=== PATIENT | female | born 1990 | race Caucasian/White ===

== ENCOUNTER 2018-10-03 20:06 | Emergency (ER) | payer OTHER ==
[~2018-10-03] VITALS: Ht 170.2 cm; Wt 88.0 kg
[~2018-10-03 20:06] MED LIST: FERR240T9 PO; PRENAT PO
[2018-10-03 20:15] VITALS: BP 132/60; PULSE 67; RESP 16; Ht 170.2 cm; Wt 88.0 kg
--- NOTE | 2018-10-03 23:59 | ERD ---
ER Documentation Chief Complaint Chief Complaint VB since this morning, pt passed a clot HPI 28-year-old female presenting with vaginal bleeding since this morning. She has a Nexplanon she is had it for the last 4 months however she developed bleeding this morning and passed a large clot. She was concerned because she has not experienced it. Over the last 4 months. Denies any back pain. Denies any dysuria. Denies any chest pain or shortness of breath. G3, . Denies medical problems. NKDA. Surgical history denies. Social history denies ROS All systems reviewed and are negative except as per history of present illness. Medications Home Meds Reported Medications Ferrous Gluconate (Iron) 1 Tab Tablet, 1 TAB PO, #1 11/05/14 Multivit/Min/Fol Ac/Iron/Pren* ( S*) 1 Tab Tab, 1 TAB PO DAILY, #1 TAB 11/05/14 Allergies Allergies: Coded Allergies: No Known Allergy (Unverified , 11/05/14) PMhx/Soc Medical and Surgical Hx: pt denies Surgical Hx History of Surgery: No Anesthesia Reaction: No Hx Neurological Disorder: No Hx Respiratory Disorders: No Hx Cardiac Disorders: No Hx Psychiatric Problems: No Hx Miscellaneous Medical Probl: Yes (Miscarriages) Hx Alcohol Use: No Hx Substance Use: No Hx Tobacco Use: No Smoking Status: Never smoker FmHx Family History: No diabetes, No coronary disease, No other Physical Exam Vitals Vital Signs Date Temp Pulse Resp B/P (MAP) Pulse Ox O2 O2 Flow FiO2 Time Delivery Rate 10/03/18 98.9 67 16 132/60 100 20:15 (84) Physical Exam GENERAL: The patient is well-appearing, well-nourished, in no acute distress CHEST: Clear to auscultation bilaterally. There are no rales, wheezes or rhonchi. HEART: Regular rate and rhythm. No murmurs, clicks, rubs or gallops. No S3 or S4. ABDOMEN:Soft, nontender and nondistended. Good bowel sounds. No rebound or guarding. No gross peritonitis. No gross organomegaly or masses. BACK: No midline or flank tenderness. Results 24 hrs Laboratory Tests Test 10/03/18 20:35 10/03/18 20:39 Urine Color YELLOW Urine Clarity SLIGHTLY CLOUDY Urine pH 7.0 Urine Specific Bl[place] 1.024 Urine Ketones NEGATIVE mg/dL Urine Nitrite NEGATIVE mg/dL Urine Bilirubin NEGATIVE mg/dL Urine Urobilinogen NEGATIVE mg/dL Urine Leukocyte Esterase NEGATIVE Julio/ul Urine Microscopic RBC 2 /HPF Urine Microscopic WBC 1 /HPF Urine Squamous Epithelial Cells FEW /HPF Urine Hemoglobin NEGATIVE mg/dL Urine Glucose NEGATIVE mg/dL Urine Total Protein NEGATIVE mg/dl POC Beta HCG, Qualitative NEGATIVE Procedures/MDM DIAGNOSTIC IMAGING REPORT Patient: YARI JI : 1990 Age: 28 Sex: F MR #: [id number] DOS: 10/03/182026 Ordering MD: ANURADHA STORM PA-C Location: [facility] Room/Bed: PROCEDURE: ULTRASOUND EVALUATION OF THE FEMALE PELVIS CLINICAL INDICATION: 28 years of age, female. Low back pain and mild vaginal bleeding. TECHNIQUE: Real-time sonographic images of the pelvis were obtained transabdominally utilizing renner scale, color, and Doppler imaging. The patient declined transvaginal scanning. COMPARISON: None available. FINDINGS: LMP: Nexplanon implant for control since May 2018. Transabdominal ultrasound of the pelvis is limited due to a contracted urinary bladder. The patient declined transvaginal scanning. Uterus: Appearance: Normal. Position: Anteverted. Size: 6.4 x 3.4 x 5.4 cm. (Volume 62 mL) Endometrial stripe: 0.5 cm Right ovary and adnexa: Size: 2.8 x 2.7 x 2 cm. (Volume 7.6 mL) Appearance: Normal morphology. No masses. Arterial flow is present. Left ovary and adnexa: Size: 3.1 x 3.4 x 2.7 cm. (Volume 10.7 mL) Appearance: Normal morphology. No masses. Arterial flow is present. Free fluid: None. IMPRESSION: 1. Normal transabdominal ultrasound evaluation of the female pelvis. Transvaginal scanning was not performed. 2. Transabdominal ultrasound is somewhat limited due to an under distended bladder. If symptoms persist, consider repeat transabdominal ultrasound through a full bladder or transvaginal ultrasound. Recommend correlation with serum beta HCG to rule out . MDM: 28-year-old female presenting after she passed a clot. She is ultrasound is within normal limits and urine is negative. Urinalysis negative. Patient likely had a mild hormonal imbalance which caused her to have some slight vaginal bleeding however there is no indication that there is further complications at this time. I do not feel further blood work or imaging is jolly cated. She is discharged with strict ER precautions and supportive medications. Patient is told if symptoms change or worsen to return immediately to the ER. All questions answered at discharge. Patient recommended to follow-up [facility] Departure Diagnosis: Primary Impression: Vaginal bleeding Condition: Stable Patient Instructions: Menorrhagia Referrals: [facility] [place] [address] [facility] [address] [place] [address] OFFICE FAX [facility] [address] [place] [address] [address] [place] [place] [address] [place] [address] [address] PEDRO[place], [facility] [address] [facility] [address] [facility] [address] [address] [facility] [facility] [address] [place] [address] [facility] [address] [place] [address] [facility] [id number] - [address] [facility] [address] [address], [facility] [address] [facility]. [address], [facility] [address] [address] [address] [place], [place] [id number] Additional Instructions: FOLLOW UP WITH YOUR PRIMARY CARE PHYSICIAN TOMORROW.Return to this facility if you are not improving as expected. JAZZY STORM PA-C Oct 03, 2018 23:59
== END 2018-10-03 21:48 | disposition home or self-care (01) ==
LOC: FTE 20:06
DX: N93.9 Abnormal uterine and vaginal bleeding, unspecified (principal)
CPT/HCPCS: 76856; 81001; 81025; Z7502; 81003

== ENCOUNTER → 2018-10-14 | Emergency (ER) | payer SELFPAY ==
[~2018-10-14] VITALS: Ht 170.2 cm; Wt 87.7 kg
[2018-10-14 21:34] VITALS: BP 122/71; PULSE 76; RESP 20; Ht 170.2 cm; Wt 87.7 kg
== END | disposition left against medical advice (07) ==
LOC: FTE 21:29
DX: Z53.21 Procedure and treatment not carried out due to patient leaving prior to being seen by health care provider (principal)